=== PATIENT | male | born 1965 | race Caucasian/White ===

== ENCOUNTER 2021-05-16 13:59 | Emergency (ER) | payer OTHER ==
[2021-05-16 14:53] VITALS: BP 147/77; PULSE 92; TEMP 98.1; BMI 22.0
== END 2021-05-16 16:18 | disposition home or self-care (01) ==
LOC: JER 13:59
DX: S42.292P Other displaced fracture of upper end of left humerus, subsequent encounter for fracture with malunion (principal)
CPT/HCPCS: 73030-TC-LT-FY; 99284-25

== ENCOUNTER 2021-05-29 17:15 | Inpatient (IN) | payer OTHER ==
[2021-05-29] MEDS ORDERED: MENTHOL/PHENOL 1 EACH UD MM PRN (21:23)
[2021-05-29] MEDS ORDERED: ACETAMINOPHEN 325 MG TABLET (FP) PO PRN (21:23)
[2021-05-29] MEDS ORDERED: MAGNESIUM CITRATE 300 ML BOTTLE PO PRN (21:23)
[2021-05-29] MEDS ORDERED: MAGNESIUM HYDROX 2400MG/30ML ORAL SUSPENSION 30 ML CUP PO PRN (21:23)
[2021-05-29] MEDS ORDERED: MAG HYDROX/AL HYDROX/SIMETH 30 ML UNIT-DOSE CUP PO PRN (21:23)
[2021-05-29] MEDS ORDERED: NICOTINE 10 MG CARTRIDGE (INHALER) IH PRN (21:23)
[2021-05-29] MEDS ORDERED: BISMUTH SUBSALICYLATE 524 MG/30 ML PO PRN (21:23)
[2021-05-29] MEDS ORDERED: ONDANSETRON *ODT* 4 MG TABLET SL PRN (21:23)
[2021-05-29 22:33] VITALS: BMI 20.2
[2021-05-30] MEDS: THIAMINE HCL 100 MG TABLET (FP) PO SCH ×2 (01:43→22:14)
[2021-05-30] MEDS: ACETAMINOPHEN 325 MG TABLET (FP) PO PRN (01:44)
[2021-05-30] MEDS: diazePAM 5 MG TABLET PO SCH ×5 (01:45→22:16)
[2021-05-30] MEDS: MELATONIN 5 MG TABLETS PO SCH ×2 (01:46→22:14)
[2021-05-30] MEDS: diazePAM 5 MG TABLET PO PRN ×3 (08:43→19:22)
[2021-05-30 09:59] LABS: HEMATOCRIT 44.6 % (35.4-49); HEMOGLOBIN 14.3 GM/dL (11.7-16.9); MCH 28.8 pg (25.7-33.7); MEAN CELL VOLUME 90.1 fl (80-96); MEAN PLT VOLUME 8.5 fl (7.5-11.1); PLATELET COUNT 240 10^3/uL (134-434); RBC 4.94 M/mm3 (4.00-5.60); RDW 14.9 % (11.9-15.9); WHITE BLOOD COUNT 6.8 K/mm3 (4.0-10.0)
[2021-05-30 10:02] LABS: CALCIUM 9.6 mg/dL (8.5-10.1)
[2021-05-30 10:03] LABS: ALBUMIN 4.3 g/dl (3.4-5.0); BLOOD UREA NITROGEN 10.8 mg/dL (7-18)
[2021-05-30 10:06] LABS: CREATININE 0.8 mg/dL (0.55-1.3)
[2021-05-30 10:08] LABS: BILIRUBIN,TOTAL 0.7 mg/dL (0.2-1)
[2021-05-30] MEDS: levETIRAcetam 500 MG TABLET (FP) PO SCH ×2 (10:10→23:00)
[2021-05-30] MEDS: NICOTINE 14 MG/24 HOURS TOPICAL PATCH TD SCH (10:11)
[2021-05-30] MEDS: PRENATAL VITAMINS W/ FOLIC ACID TABLET (FP) PO SCH (10:11)
[2021-05-30] MEDS: METHOCARBAMOL 500 MG TABLET PO PRN ×2 (15:22→22:18)
[2021-05-30] MEDS: IBUPROFEN 400 MG TABLET (FP) PO PRN (17:44)
[2021-05-30] MEDS: QUEtiapine FUMARATE 200 MG TABLET PO SCH (22:14)
[2021-05-31] MEDS: diazePAM 5 MG TABLET PO SCH ×3 (05:06→22:22)
[2021-05-31] MEDS ORDERED: methaDONE HCL 10 MG TABLET PO SCH (06:00)
[2021-05-31] MEDS ORDERED: methaDONE HCL 10 MG TABLET ONE (06:04)
[2021-05-31] MEDS ORDERED: methaDONE HCL 40 MG DISPERSABLE TABLET ONE (06:04)
[2021-05-31] MEDS: PRENATAL VITAMINS W/ FOLIC ACID TABLET (FP) PO SCH (10:14)
[2021-05-31] MEDS: NICOTINE 14 MG/24 HOURS TOPICAL PATCH TD SCH (10:14)
[2021-05-31] MEDS: levETIRAcetam 500 MG TABLET (FP) PO SCH ×2 (10:14→22:23)
[2021-05-31] MEDS: diazePAM 5 MG TABLET PO PRN ×2 (10:17→17:41)
[2021-05-31] MEDS: ACETAMINOPHEN 325 MG TABLET (FP) PO PRN (17:41)
[2021-05-31] MEDS: METHOCARBAMOL 500 MG TABLET PO PRN (17:41)
[2021-05-31] MEDS: THIAMINE HCL 100 MG TABLET (FP) PO SCH (22:23)
[2021-05-31] MEDS: MELATONIN 5 MG TABLETS PO SCH (22:23)
[2021-05-31] MEDS: QUEtiapine FUMARATE 200 MG TABLET PO SCH (22:23)
[2021-06-01] MEDS ORDERED: methaDONE HCL 10 MG TABLET ONE (04:10)
[2021-06-01] MEDS ORDERED: methaDONE HCL 40 MG DISPERSABLE TABLET ONE (04:11)
[2021-06-01] MEDS: diazePAM 5 MG TABLET PO SCH ×2 (06:10→18:09)
[2021-06-01] MEDS: IBUPROFEN 400 MG TABLET (FP) PO PRN ×2 (06:12→22:14)
[2021-06-01] MEDS: PRENATAL VITAMINS W/ FOLIC ACID TABLET (FP) PO SCH (10:16)
[2021-06-01] MEDS: levETIRAcetam 500 MG TABLET (FP) PO SCH ×2 (10:16→22:13)
[2021-06-01] MEDS: NICOTINE 14 MG/24 HOURS TOPICAL PATCH TD SCH (10:16)
[2021-06-01] MEDS: diazePAM 5 MG TABLET PO PRN (10:17)
[2021-06-01] MEDS: QUEtiapine FUMARATE 200 MG TABLET PO SCH (22:13)
[2021-06-01] MEDS: MELATONIN 5 MG TABLETS PO SCH (22:13)
[2021-06-01] MEDS: THIAMINE HCL 100 MG TABLET (FP) PO SCH (22:14)
[2021-06-02] MEDS ORDERED: methaDONE HCL 10 MG TABLET ONE (03:44)
[2021-06-02] MEDS ORDERED: methaDONE HCL 40 MG DISPERSABLE TABLET ONE (03:45)
[2021-06-02] MEDS: ACETAMINOPHEN 325 MG TABLET (FP) PO PRN (05:34)
[2021-06-02] MEDS ORDERED: diazePAM 5 MG TABLET PO ONE (06:00)
[2021-06-02] MEDS: PRENATAL VITAMINS W/ FOLIC ACID TABLET (FP) PO SCH (10:14)
[2021-06-02] MEDS: levETIRAcetam 500 MG TABLET (FP) PO SCH (10:14)
[2021-06-02] MEDS: NICOTINE 14 MG/24 HOURS TOPICAL PATCH TD SCH (10:15)
[2021-06-02 12:37] VITALS: BP 147/87; PULSE 94; TEMP 96.6
== END 2021-06-02 12:52 | disposition home or self-care (01) | DRG 897 ==
LOC: YASAS 17:15 → Y3N 05-30 01:09
PROVIDERS: ADMIT Allergy & Immunology; ATTEND Allergy & Immunology
PROC: HZ2ZZZZ Detoxification Services for Substance Abuse Treatment (ICD-10-PCS; principal; 2021-05-30)
DX: F10.230 Alcohol dependence with withdrawal, uncomplicated (principal); F11.20 Opioid dependence, uncomplicated; F20.0 Paranoid schizophrenia; F13.230 Sedative, hypnotic or anxiolytic dependence with withdrawal, uncomplicated; F12.20 Cannabis dependence, uncomplicated; F17.210 Nicotine dependence, cigarettes, uncomplicated; F41.9 Anxiety disorder, unspecified; F32.A Depression, unspecified; G40.909 Epilepsy, unspecified, not intractable, without status epilepticus; G47.00 Insomnia, unspecified; K21.9 Gastro-esophageal reflux disease without esophagitis; B18.2 Chronic viral hepatitis C; Z63.4 Disappearance and death of family member; Z88.8 Allergy status to other drugs, medicaments and biological substances; Z91.013 Allergy to seafood; Z91.19 Patient's noncompliance with other medical treatment and regimen
CPT/HCPCS: 36415; 80053; 80177; 85027; 86780; C9803; U0003; U0005